=== PATIENT | female | born 1940 | race Caucasian/White ===

== ENCOUNTER → 2020-07-31 15:40 | Outpatient (CLI) | payer OTHER, SELFPAY ==
--- NOTE | 2020-07-31 | DI.ECHO.S_ITS ---
[place] [facility]---------+ [facility] +---------+ : : [address] : : : : [id number] : : : : Phone: [phone] : : [phone] +---------+ Echocardiogram Report + + :Name: TEENA CISNEROS Study Date: 07/31/2020 Height: 60 in : :[facility] ReadingLocation: Weight: 146 lb : : Gender: Female BSA: 1.6 m2 : :: 1940 Age: 80 yrs BP: 157/94 mmHg: :Reason For Study: AORTIC STENOSIS : :Ordering Physician: JAUN, : :MELISSA Performed By: Caterina Lazaro : :Referring: MELISSA LVOE : + + Interpretation Summary 1) Normal left ventricular thickness, size, wall motion, and systolic function (EF 60-65%). 2) Normal right ventricular size and function. 3) There is moderate aortic stenosis (valve area 1.1cm2, mean gradient 28mmHg severity ratio 0.3). 4) There is mild aortic regurgitation. 5) No prior Echo available for comparison. Procedure: A two-dimensional transthoracic echocardiogram with color flow and Doppler was performed. The study quality was technically adequate. The patient was in sinus bradycardia with heart rates between 56-65 bpm during the exam. Left Ventricle: The left ventricle is normal in size and wall thickness. The ejection fraction is estimated to be 60-65%. Left ventricular systolic function appears normal without focal wall motion abnormalities. Right Ventricle: The right ventricle is normal in size and function. Atria: The left atrial size is normal. Right atrial size is normal. There is no Doppler evidence for an interatrial shunt. Mitral Valve: There is mild to moderate mitral annular calcification. The mitral valve leaflets appear mildly thickened, but open well. There is trace mitral regurgitation. Aortic Valve: The aortic valve is trileaflet. The aortic valve is moderately calcified. There is mild to moderately reduced leaflet mobility. There is moderate aortic stenosis. The peak aortic velocity is 3.4 m/sec. The aortic valve mean gradient is 28 mmHg. The calculated aortic valve area is 1.0 cm2. There is mild aortic regurgitation. Tricuspid Valve: The tricuspid valve is normal in structure and function. There is a trace or physiologic amount of tricuspid regurgitation. Pulmonary artery pressures cannot be estimated because of the lack of a measurable TR jet velocity. Pulmonic Valve: The pulmonic valve leaflets are thin and pliable; valve motion is normal. There is no pulmonic valvular regurgitation. Great Vessels: The aortic root is normal size. The ascending aorta is at the upper limits of normal in size. The IVC is of normal diameter and collapses greater than 50% with a sniff. This suggests a low right atrial pressure of 3 mm Hg. Pericardium/ Pleura There is no pericardial effusion. There is no pleural effusion. MMode/2D Measurements & Calculations LVIDd: 4.3 cm LVOT diam: 2.1 cm LVIDs: 2.7 cm Ao root diam: 2.9 cm FS: 37.6 % asc Aorta Diam: 3.5 cm IVSd: 0.92 cm Ao Arch Diam (Prox Trans): 2.4 cm LVPWd: 1.1 cm LV delgado. diameter/BSA (cm/m^2): 2.6 LV sys. diameter/BSA (cm/m^2): 1.6 LA A2 area: 15.9 cm2 RA long axis: 4.6 cm LA A4 area: 14.4 cm2 RA area: 13.5 cm2 LA length (vol): 4.7 cm RA vol: 34.0 ml LA vol: 41.2 ml RA : 20.8 ml/m2 LA vol index: 25.2 ml/m2 IVC diam: 1.0 cm RVD1 (basal): 3.1 cm TAPSE: 2.4 cm Doppler Measurements & Calculations Ao V2 max: 333.9 cm/sec LVOT Max Fan: 107.6 cm/sec Ao V2 mean: 250.0 cm/sec LV V1 max P.6 mmHg Ao max P.8 mmHg LV V1 VTI: 25.8 cm Ao mean P.7 mmHg PIERO(I,D): 1.0 cm2 Ao V2 VTI: 85.7 cm PIERO(V,D): 1.1 cm2 sev ratio: 0.30 PIERO indexed to BSA (cm^2/m^2): 0.61 AI P1/2t: 890.3 msec AI dec slope: 158.6 cm/sec2 MV E max fan: 72.8 cm/sec PA pr(Accel): 19.1 mmHg MV A max fan: 95.7 cm/sec MV E/A: 0.76 Med Peak E' Fan: 5.8 cm/sec E/E' med: 12.6 Lat Peak E' Fan: 6.7 cm/sec E/E' lat: 10.8 E/e' average: 11.7 MV dec time: 0.23 sec SV(LVOT): 85.9 ml Reading Physician:12:26 PM
== END ==
PROVIDERS: PCP Physician Assistant; Referring Provider Internal Medicine Cardiovascular Disease; Visit Provider Internal Medicine Cardiovascular Disease
DX: I35.2 Nonrheumatic aortic (valve) stenosis with insufficiency (principal)
CPT/HCPCS: 93306

== ENCOUNTER → 2021-09-11 13:28 | Outpatient (CLI) | payer OTHER, SELFPAY ==
--- NOTE | 2021-09-11 13:29 | DI.ECHO.S_ITS ---
[place] +---------+ [facility] +---------+ : : [address] : [address] : : [address] : : : : [id number] : : : : Phone: [phone] : : [phone] +---------+ Echocardiogram Report + + :Name: TEENA CISNEROS Study Date: 09/11/2021 Height: 61 in : :[facility] ReadingLocation: Weight: 135 lb : : Gender: Female BSA: 1.6 m2 : :: 1940 Age: 81 yrs BP: 122/77 mmHg: :Reason For Study: Aortic valve stenosis : :Ordering Physician: JAUN, : :MELISSA Performed By: Adan Lancaster : :Referring: MELISSA LOVE : + + Interpretation Summary 1) Normal left ventricular thickness, size, wall motion, and systolic function (EF 60-65%). 2) Normal right ventricular size and function. 3) There is moderate aortic stenosis (valve area 1.1cm2, mean gradient 32mmHg). 4) No prior Echo available for comparison. Procedure: A two-dimensional transthoracic echocardiogram with color flow and Doppler was performed. The study quality was technically adequate. Comparison is made with the echocardiogram of 07/31/2020. Left Ventricle: The left ventricle is normal in size and wall thickness. Left ventricular systolic function is normal. The ejection fraction is estimated to be 60-65%. There are no focal wall motion abnormalities. Diastolic function could not be accurately assessed due to unobtainable data. Right Ventricle: The right ventricle is normal in size and function. Atria: Both atria are normal in size. The interatrial septum grossly appears intact with no obvious evidence for an atrial septal defect. Mitral Valve: There is mild mitral annular calcification. There is mild mitral regurgitation. Aortic Valve: The aortic valve is mildly calcified. There is moderately reduced leaflet mobility. There is moderate aortic stenosis. The peak aortic velocity is 3.6 m/sec. The calculated aortic valve area is 1.1 cm2. The aortic valve mean gradient is 32 mmHg. There is mild aortic regurgitation. Tricuspid Valve: The tricuspid valve is normal in structure and function. There is trace tricuspid regurgitation. Pulmonary artery pressures cannot be estimated because of the lack of a measurable TR jet velocity. Pulmonic Valve: The pulmonic valve is normal in structure and function. There is a trace or physiologic amount of pulmonic regurgitation. Great Vessels: The aortic root is normal size. The dimensions of the ascending aorta are normal. The IVC is of normal diameter and collapses greater than 50% with a sniff. This suggests a low right atrial pressure of 3 mm Hg. Pericardium/ Pleura There is no pericardial effusion. There is no pleural effusion. MMode/2D Measurements & Calculations LVIDd: 4.7 cm LVOT diam: 2.1 cm LVIDs: 2.7 cm Ao root diam: 2.9 cm FS: 41.8 % asc Aorta Diam: 3.3 cm IVSd: 0.97 cm LVPWd: 0.85 cm LV delgado. diameter/BSA (cm/m^2): 2.9 LV sys. diameter/BSA (cm/m^2): 1.7 LA A2 area: 15.6 cm2 RA long axis: 4.6 cm LA A4 area: 16.6 cm2 RA area: 12.9 cm2 LA length (vol): 4.8 cm RA vol: 31.0 ml LA vol: 45.9 ml RA : 19.4 ml/m2 LA vol index: 28.7 ml/m2 TAPSE: 2.3 cm PIERO (plan): 1.0 cm2 Doppler Measurements & Calculations Ao V2 max: 363.7 cm/sec LVOT Max Fan: 110.6 cm/sec Ao V2 mean: 267.9 cm/sec LV V1 max P.9 mmHg Ao max P.7 mmHg LV V1 VTI: 26.7 cm Ao mean P.6 mmHg PIERO(I,D): 1.1 cm2 Ao V2 VTI: 87.2 cm PIERO(V,D): 1.1 cm2 sev ratio: 0.31 PIERO indexed to BSA (cm^2/m^2): 0.69 MV E max fan: 87.0 cm/sec SV(LVOT): 95.9 ml MV A max fan: 102.6 cm/sec MV E/A: 0.85 Med Peak E' Fan: 4.4 cm/sec E/E' med: 19.7 Lat Peak E' Fan: 6.3 cm/sec E/E' lat: 13.8 E/e' average: 16.7 MV dec time: 0.19 sec Reading Physician:06:03 PM
== END ==
PROVIDERS: PCP Nurse Practitioner; Referring Provider Internal Medicine Cardiovascular Disease; Visit Provider Internal Medicine Cardiovascular Disease
DX: I08.0 Rheumatic disorders of both mitral and aortic valves
CPT/HCPCS: 93306

== ENCOUNTER → 2022-09-23 12:34 | Outpatient (CLI) | payer OTHER, SELFPAY ==
--- NOTE | 2022-09-23 | DI.ECHO.S_ITS ---
[place] +---------+ [facility] +---------+ : : [address] : [address] : [address] : : : : [id number] : : : : Phone: [phone] : : [phone] +---------+ Echocardiogram Report + + :Name: TEENA CISNEROS Study Date: 09/23/2022 Height: 60.5 in: :[facility] ReadingLocation: Weight: 135 lb : : Gender: Female BSA: 1.6 m2 : :: 1940 Age: 82 yrs BP: 140/81 mmHg: :Reason For Study: AORTIC STENOSIS : :Ordering Physician: JAUN, : :MELISSA Performed By: Caterina Lazaro : :Referring: MELISSA LOVE : + + Interpretation Summary 1) Normal left ventricular thickness, size, wall motion, and systolic function (EF 60-65%). 2) Normal right ventricular size and function. 3) There is moderate to severe aortic stenosis (valve area 0.9cm2, mean gradient 32mmHg, severity ratio 0.25). 4) Compared to the Echo done 09/11/2021, aortic stenosis has progressed from moderate to moderate-severe on this study. Procedure: A two-dimensional transthoracic echocardiogram with color flow and Doppler was performed. The study quality was technically adequate. Comparison is made with the echocardiogram of 09/11/2021. The patient was in sinus rhythm with heart rates between 60-65 bpm during the exam. Left Ventricle: The left ventricle is normal in size and wall thickness. The ejection fraction is estimated to be 60-65%. Left ventricular systolic function appears normal without focal wall motion abnormalities. Diastolic parameters suggest a relaxation abnormality of the left ventricle, consistent with probable normal filling pressures. Right Ventricle: The right ventricle is normal in size and function. Atria: The left atrial size is normal. Right atrial size is normal. There is no Doppler evidence for an interatrial shunt. Mitral Valve: There is mild mitral annular calcification. There is mild mitral regurgitation. Aortic Valve: The aortic valve is moderately calcified. There is moderately reduced leaflet mobility. There is moderate to severe aortic stenosis. The peak aortic velocity is 3.6 m/sec. The aortic valve mean gradient is 32 mmHg. The calculated aortic valve area is 0.9 cm2. There is mild aortic regurgitation. Tricuspid Valve: The tricuspid valve is normal in structure and function. There is trace tricuspid regurgitation. Pulmonic Valve: The pulmonic valve leaflets are thin and pliable; valve motion is normal. There is mild pulmonic regurgitation. Great Vessels: The aortic root is normal size. The dimensions of the ascending aorta are normal. The IVC is of normal diameter and collapses greater than 50% with a sniff. This suggests a low right atrial pressure of 3 mm Hg. Pericardium/ Pleura There is no pericardial effusion. There is no pleural effusion. MMode/2D Measurements & Calculations LVIDd: 4.6 cm LVOT diam: 2.1 cm LVIDs: 2.7 cm Ao root diam: 2.8 cm FS: 40.4 % asc Aorta Diam: 3.3 cm EPSS: 0.33 cm Ao Arch Diam (Prox Trans): 2.2 cm IVSd: 0.83 cm LVPWd: 0.98 cm LV delgado. diameter/BSA (cm/m^2): 2.9 LV sys. diameter/BSA (cm/m^2): 1.7 LA A2 area: 15.5 cm2 RA long axis: 4.2 cm LA A4 area: 10.9 cm2 RA area: 11.1 cm2 LA length (vol): 4.1 cm RA vol: 24.8 ml LA vol: 35.3 ml RA : 15.6 ml/m2 LA vol index: 22.2 ml/m2 IVC diam: 1.3 cm RVD1 (basal): 3.3 cm RVD2 (mid): 2.8 cm TAPSE: 1.9 cm Doppler Measurements & Calculations Ao V2 max: 361.6 cm/sec LVOT Max Fan: 91.5 cm/sec Ao V2 mean: 255.9 cm/sec LV V1 max P.3 mmHg Ao max P.1 mmHg LV V1 VTI: 21.4 cm Ao mean P.5 mmHg PIERO(I,D): 0.90 cm2 Ao V2 VTI: 85.1 cm PIERO(V,D): 0.91 cm2 sev ratio: 0.25 PIERO indexed to BSA (cm^2/m^2): 0.57 AI P1/2t: 618.6 msec AI dec slope: 175.7 cm/sec2 MV E max fan: 98.4 cm/sec PA V2 max: 82.7 cm/sec MV A max fan: 109.1 cm/sec PA V2 mean: 58.4 cm/sec MV E/A: 0.90 PA mean P.5 mmHg Med Peak E' Fan: 4.6 cm/sec PA pr(Accel): 35.3 mmHg E/E' med: 21.5 Lat Peak E' Fan: 6.6 cm/sec E/E' lat: 14.8 E/e' average: 18.2 MV dec time: 0.15 sec Pulm A Revs Fan: 34.4 cm/sec SV(LVOT): 76.8 ml Pulm A Revs Dur: 0.13 sec Reading Physician:09:16 AM
== END ==
PROVIDERS: PCP Nurse Practitioner; Referring Provider Internal Medicine Cardiovascular Disease; Visit Provider Internal Medicine Cardiovascular Disease
DX: I08.0 Rheumatic disorders of both mitral and aortic valves
CPT/HCPCS: 93306

== ENCOUNTER → 2023-10-13 12:16 | Outpatient (CLI) | payer MEDICARE, SELFPAY ==
--- NOTE | 2023-10-13 12:24 | DI.ECHO.S_ITS ---
[facility] +---------+ Hospital : : [address] : : [address] : : [id number] : : Phone: [phone] Echocardiogram Report + + :Name: TEENA CISNEROS Study Date: 10/13/2023 Height: 60 in : :[facility] ReadingLocation: Weight: 131 lb : : Gender: Female BSA: 1.6 m2 : :: 1940 Age: 83 yrs BP: 141/88 mmHg: :Reason For Study: AORTIC VALVE STENOSIS : :Ordering Physician: JAUN, : :MELISSA Performed By: Gerard Beatty : :Referring: MELISSA LOVE : + + Interpretation Summary 1) Normal left ventricular thickness, size, wall motion, and systolic function (EF 60-65%). 2) Normal right ventricular size and function. 3) There is severe aortic stenosis (valve area 0.8cm2, mean gradient 35mmHg, severity ratio 0.22). 4) Compared to the Echo done 09/23/2022, aortic stenosis has progressed from moderate-severe to severe on this study. Procedure: A two-dimensional transthoracic echocardiogram with color flow and Doppler was performed. The study quality was technically adequate. Comparison is made with the echocardiogram of 09/23/2022. The patient was in sinus rhythm with heart rates between 60-71 bpm during the exam. Left Ventricle: The left ventricle is normal in size and wall thickness. The ejection fraction is estimated to be 60-65%. Left ventricular systolic function appears normal without focal wall motion abnormalities. Diastolic parameters suggest a pseudonormalization pattern, consistent with probable elevated filling pressures. Right Ventricle: The right ventricle is normal size. The right ventricular systolic function is normal. Atria: The left atrium is moderately dilated. Right atrial size is normal. The interatrial septum grossly appears intact with no obvious evidence for an atrial septal defect. Mitral Valve: The mitral valve is normal in structure and function. There is no mitral valve stenosis. There is mild mitral regurgitation. Aortic Valve: The aortic valve is trileaflet. There is severe aortic stenosis. The peak aortic velocity is 3.52 m/sec. The aortic valve mean gradient is 34.8 mmHg. The calculated aortic valve area is 0.73 cm2. There is mild aortic regurgitation. Tricuspid Valve: The tricuspid valve is normal. There is no tricuspid stenosis. There is mild tricuspid regurgitation. The right ventricular systolic pressure is estimated to be at least 20.8 mmHg based on an estimated right atrial pressure of 3 mm Hg. Pulmonic Valve: The pulmonic valve is not well visualized. There is no pulmonic valvular stenosis. There is trace pulmonic regurgitation. Great Vessels: The aortic root is normal size. The dimensions of the ascending aorta are normal. The IVC is of normal diameter and collapses greater than 50% with a sniff. This suggests a low right atrial pressure of 3 mm Hg. Pericardium/ Pleura There is no pericardial effusion. There is no pleural effusion. MMode/2D Measurements & Calculations LVIDd: 4.4 cm LVOT diam: 2.0 cm LVIDs: 2.6 cm Ao root diam: 2.6 cm FS: 39.9 % asc Aorta Diam: 3.2 cm IVSd: 1.0 cm LVPWd: 0.86 cm LV delgado. diameter/BSA (cm/m^2): 2.8 LV sys. diameter/BSA (cm/m^2): 1.7 LA A2 area: 17.0 cm2 RA long axis: 4.3 cm LA A4 area: 20.6 cm2 RA area: 14.8 cm2 LA length (vol): 5.5 cm RA vol: 42.9 ml LA vol: 53.9 ml RA : 27.5 ml/m2 LA vol index: 34.6 ml/m2 IVC diam: 1.5 cm RVD1 (basal): 3.7 cm RVD2 (mid): 3.2 cm TAPSE: 2.3 cm Doppler Measurements & Calculations Ao V2 max: 352.1 cm/sec LVOT Max Fan: 87.0 cm/sec Ao V2 mean: 285.3 cm/sec LV V1 max P.0 mmHg Ao max P.6 mmHg LV V1 VTI: 21.6 cm Ao mean P.8 mmHg PIERO(I,D): 0.73 cm2 Ao V2 VTI: 96.6 cm PIERO(V,D): 0.81 cm2 sev ratio: 0.22 PIERO indexed to BSA (cm^2/m^2): 0.47 MV E max fan: 68.8 cm/sec TR max fan: 227.9 cm/sec MV A max fan: 109.1 cm/sec TR max P.8 mmHg MV E/A: 0.63 PA V2 max: 98.4 cm/sec Med Peak E' Fan: 4.4 cm/sec PA V2 mean: 70.9 cm/sec E/E' med: 15.7 PA mean P.2 mmHg Lat Peak E' Fan: 4.1 cm/sec TANK pr(Accel): 29.3 mmHg E/E' lat: 16.8 E/e' average: 16.3 MV dec time: 0.18 sec SV(LVOT): 70.4 ml Reading Physician:02:36 PM
== END ==
PROVIDERS: PCP Nurse Practitioner; Referring Provider Internal Medicine Cardiovascular Disease; Visit Provider Internal Medicine Cardiovascular Disease
DX: I08.3 Combined rheumatic disorders of mitral, aortic and tricuspid valves (principal)
CPT/HCPCS: 93306

== ENCOUNTER → 2024-12-26 11:58 | Outpatient (CLI) | payer MEDICARE, SELFPAY ==
[2024-12-26 13:07] LABS: Hematocrit 42.7 % (36-46); Hemoglobin 14.4 g/dL (12.0-16.0); Mean Corpuscular HGB Conc 33.8 % (30-36); Mean Corpuscular Hemoglobin 31.4 PG (26-34); Mean Corpuscular Volume 93.1 fL (80-100); Platelet Count 222 X10^3/uL (150-400)
[2024-12-26 13:32] LABS: Blood Urea Nitrogen 16 mg/dL (7-17); Calcium 9.7 mg/dL (8.4-10.2); Carbon Dioxide 26 mmol/L (22-32); Chloride 106 mmol/L (98-107); Cholesterol 117 mg/dL (140-199); Estimated Glomerular Filt Rate > 60 mL/min (>60); Glucose 77 mg/dL (70-99); HDL Cholesterol 53 mg/dL (40-60); HEMOLYSIS < 15 (0-50); Potassium 4.4 mmol/L (3.4-5.1); Sodium 142 mmol/L (137-145); Triglycerides 147 mg/dL (35-150)
== END ==
PROVIDERS: PCP Nurse Practitioner; Referring Provider Nurse Practitioner; Visit Provider Internal Medicine Cardiovascular Disease
DX: I08.2 Rheumatic disorders of both aortic and tricuspid valves (principal); E78.5 Hyperlipidemia, unspecified
CPT/HCPCS: 36415; 80048; 80061; 85027; 93306